=== PATIENT | female | born 1990 | race African-American/Black ===

== ENCOUNTER 2025-04-10 16:30 | Emergency (ER) | payer OTHER ==
[2025-04-10] MEDS ORDERED: Ketorolac Tromethamine 30 MG (1 mL) VIAL ONE (17:19)
== END 2025-04-10 17:45 | disposition home or self-care (01) ==
LOC: ERS 16:30
DX: K04.7 Periapical abscess without sinus (principal); K02.9 Dental caries, unspecified
CPT/HCPCS: 96372; 99282; J1885